=== PATIENT | female | born 1995 | race Caucasian/White ===

== ENCOUNTER 2019-12-26 20:41 | Emergency (ER) | payer MEDICAID ==
[~2019-12-26] VITALS: Ht 165.1 cm; Wt 97.7 kg
[2019-12-26] MEDS ORDERED: DiphenhydrAMINE HCL 25 MG CAPSULE PO ONE (22:15)
[2019-12-26] MEDS ORDERED: DEXAMETHASONE SOD PHOS 4 MG/ML 5 ML VIAL IM ONE (22:15)
[2019-12-26] MEDS ORDERED: FAMOTIDINE 20 MG TABLET PO ONE (22:15)
[2019-12-27 00:27] VITALS: BP 137/69
== END 2019-12-27 00:30 | disposition home or self-care (01) ==
LOC: EMS 20:43
DX: T78.1XXA Other adverse food reactions, not elsewhere classified, initial encounter (principal); X58.XXXA Exposure to other specified factors, initial encounter
CPT/HCPCS: 96372; 99283; J1100

== ENCOUNTER 2025-04-16 11:09 | Emergency (ER) | payer MEDICAID ==
[~2025-04-16] VITALS: Ht 160 cm; Wt 85.0 kg
[2025-04-16 12:44] LABS: PLATELET COUNT (AUTO) 322 K/uL (150-450); RED BLOOD CELL COUNT(AUTO) 4.40 MIL/uL (4.00-5.20); RED CELL DISTRIBUTION WIDTH 15.9 % (11.5-14.5); WHITE BLOOD COUNT (AUTO) 9.0 K/uL (4.5-11.0)
[2025-04-16 12:47] LABS: CALCIUM, TOTAL 9.0 mg/dL (8.8-10.5); CREATININE 0.74 mg/dL (0.60-1.30); GLOMERULAR FILTR. RATE CALC > 60 mL/min (>60); GLUCOSE,RANDOM 92 mg/dL (70-110); SODIUM SERUM 138 mmol/L (136-145); UREA NITROGEN, BLOOD 9 mg/dL (7-18)
[2025-04-16 13:10] VITALS: BP 134/77; PULSE 67; RESP 18; TEMP 98.305304; O2SAT 99
[2025-04-16] MEDS ORDERED: DIPH50CA37 PO (13:25)
[2025-04-16] MEDS ORDERED: MELA1TAB28 PO (13:25)
== END 2025-04-16 13:44 | disposition home or self-care (01) ==
LOC: EMS 11:23
DX: F41.9 Anxiety disorder, unspecified (principal); G47.00 Insomnia, unspecified; R11.0 Nausea; R42 Dizziness and giddiness
CPT/HCPCS: 80048; 84703; 85025; 99283